=== PATIENT | male | born 1990 | race African-American/Black ===

== ENCOUNTER 2017-09-23 11:53 | Emergency (ER) | payer OTHER ==
[~2017-09-23] VITALS: Ht 172.7 cm; Wt 68.0 kg
[2017-09-23] MEDS ORDERED: LIDOCAINE HCL 2% 20 ML VIAL TP ONE (12:15)
--- NOTE | 2017-09-23 12:17 | NUR ---
pt is in room #2a. dr Way evaluated the pt.
--- NOTE | 2017-09-23 12:33 | NUR ---
PT WAS D/C'd TO HOME. D/C INSTRUCTIONS GIVEN TO THE PT. NO BLEDING. DRESINGIS INTACT.
[2017-09-23 12:34] VITALS: BP 139/77
[2017-09-23 13:11] LABS: *AMPHETAMINE, URINE NEGATIVE (NEGATIVE); *BARBITURATE, URINE NEGATIVE (NEGATIVE); *CANNABINOID, URINE POSITIVE (NEGATIVE); *COCCAINE, URINE NEGATIVE (NEGATIVE); *OPIATE, URINE NEGATIVE (NEGATIVE); *PHENCYCLIDINE SCREEN,URINE NEGATIVE (NEGATIVE)
== END 2017-09-23 12:35 | disposition home or self-care (01) ==
LOC: ER 11:53
DX: S61.213A Laceration without foreign body of left middle finger without damage to nail, initial encounter (principal); W26.0XXA Contact with knife, initial encounter; Y93.89 Activity, other specified; Y92.89 Other specified places as the place of occurrence of the external cause; Y99.8 Other external cause status
CPT/HCPCS: 80307; A4663

== ENCOUNTER 2017-09-26 14:42 | Inpatient (IN) | payer OTHER ==
[~2017-09-26] VITALS: Ht 172.7 cm; Wt 68.0 kg
--- NOTE | 2017-09-26 15:15 | NUR ---
Pt has LT middle finger sutures, but has multiple blisters on mid finger and discoloration, able to move finger, but decreased sensation.
[2017-09-26] MEDS ORDERED: PIPERACILLIN SODIUM/TAZOBACTAM 3.375 G in IV DEXTROSE 5% 50 ML IV ONE (15:39)
[2017-09-26] MEDS ORDERED: VANCOMYCIN IV 1,000 MG in IV DEXTROSE 5% 250 ML IV ONE (15:45)
[2017-09-26] MEDS ORDERED: IV NS 1000 ML 1,000 ML IV ONE (15:45)
[2017-09-26] MEDS ORDERED: KETOROLAC TROMETHAMINE 30 MG INJ IVP ONE (15:56)
[2017-09-26 15:57] LABS: BASOPHILS % (AUTO) 0.4 % (0.0-2.0); EOSINOPHILS % (AUTO) 0.6 % (0.0-7.0); HEMATOCRIT 46.9 % (36.7-47.1); HEMOGLOBIN 15.5 g/dL (12.5-16.3); LYMPHOCYTES # (AUTO) 1.4 K/uL (20.0-40.0); LYMPHOCYTES % (AUTO) 27.3 % (20.5-51.5); MEAN CORPUSCULAR HGB CONC 33 g/dL (32.5-36.3); MEAN CORPUSCULAR VOLUME 93.9 fL (73.0-96.2); MONOCYTES # (AUTO) 0.4 K/uL (2.0-10.0); MONOCYTES % (AUTO) 7.3 % (0.0-11.0); NEUTROPHILS # (AUTO) 3.4 K/uL (1.8-8.9); NEUTROPHILS % (AUTO) 64.4 % (38.5-71.5); PLATELET COUNT (AUTO) 195 K/uL (152-348); RED BLOOD CELL COUNT(AUTO) 4.99 MIL/uL (4.06-5.63); WHITE BLOOD COUNT (AUTO) 5.3 K/uL (3.6-10.2)
[2017-09-26] MEDS ORDERED: NORMAL SALINE FLUSH 10 ML DISP.SYRIN ONE (16:01)
[2017-09-26] MEDS ORDERED: SWABABLE VALVE TRANSFER SET EA MC ONE (16:01)
[2017-09-26] MEDS ORDERED: IV NORMAL SALINE 100 ML ONE (16:02)
[2017-09-26] MEDS ORDERED: IOHEXOL 300MG/ML 100 ML INFUS..BTL ONE (16:02)
[2017-09-26 16:08] LABS: CREATININE 1.3 mg/dL (0.6-1.3); POTASSIUM 3.8 mmol/L (3.5-5.1)
[2017-09-26] MEDS ORDERED: PIPERACILLIN SODIUM/TAZO 3.375 GM VIAL ONE (16:11)
[2017-09-26] MEDS ORDERED: VANCOMYCIN IV 200 ML ONE (16:11)
[2017-09-26 16:14] LABS: BILIRUBIN,TOTAL 0.7 mg/dL (0.2-1.0); TOTAL PROTEIN, SERUM 8.2 g/dL (6.4-8.2)
[2017-09-26] MEDS ORDERED: KETOROLAC TROMETHAMINE 30 MG INJ ONE (16:23)
--- NOTE | 2017-09-26 16:24 | NUR ---
MARCO GARCIA spoke to Dr Barraza. Philip Murray paged Dr Ramos(hand surgeon).
--- NOTE | 2017-09-26 16:30 | NUR ---
Pt signed consent for CT w/ IV contrast.
--- NOTE | 2017-09-26 16:49 | NUR ---
Pt out of Er for CT. DR Ramos spoke to ER .
[2017-09-26] MEDS ORDERED: ACETAMINOPHEN 325 MG TABLET PO PRN (17:30)
[2017-09-26] MEDS ORDERED: Z GUARD REMEDY PASTE 57 GM TUBE TOP PRN (17:30)
[2017-09-26] MEDS ORDERED: MAGNESIUM HYDROXIDE 30 ML LIQUID UDC PO PRN (17:30)
--- NOTE | 2017-09-26 19:07 | NUR ---
CLINICAL PHARMACY NOTE:VANCOMYCIN DOSING request for vancomycin dosing on 27 y/o male 172.7cm tall and weight 68Kg for cellulitis of left 3rd phalanx (finger) Temp 98.5 BUN 10 scr 1.3 WBC 5.3 also on Zosyn, received vancomycin 1gm IVPB in Er Continue vancomycin 1gm ivpb q12h estimated trough 15. Will order trough level prior to 4th dose. Will continue to monitor.
[2017-09-26] MEDS: IV NS 1000 ML 1,000 ML IV SCH (19:53)
[2017-09-26 20:00] VITALS: BP 102/72
--- NOTE | 2017-09-26 20:00 | NUR ---
RECEIVED PATIENT AWAKE IN BED. A/O X4. VERY PLEASANT WHEN APPROACHED. PATIENT DENIES PAIN OR DISCOMFORT IN LEFT HAND. DRESSING NOTED TO MIDDLE FINGER ON LEFT HAND, CLEAN, DRY AND INTACT. ELEVATED ON PILLOWS. VS WNL. NO RESP. DISTRESS NOTED. HEPLOCK INTACT AND PATENT, #20 GAUGE NOTED TO RIGHT FA. CALL LIGHT IN REACH. ALL NEEDS ATTENDED. WILL CONTINUE TO MONITOR AND ASSESS.
--- NOTE | 2017-09-26 21:00 | NUR ---
IVF INFUSING WELL TO RIGHT FA, ORDERED PER MD. DRESSING NOTED TO LEFT HAND, MIDDLE FINGER. DRESSING REMOVED, PICTURE TAKEN AND PLACED IN CHART, NEW STERILE DRESSING APPLIED. NEUROVASCULAR CHECKS WNL, SENSATION PRESENT AND WNL. WILL CONTINUE TO MONITOR AND ASSESS. CALL LIGHT IN REACH. ALL NEEDS ATTENDED.
[2017-09-26] MEDS: PIPERACILLIN/TAZOBACTAM/D5W 50 ML IV SCH (21:16)
[2017-09-27] MEDS: PIPERACILLIN/TAZOBACTAM/D5W 50 ML IV SCH ×4 (03:09→21:29)
[2017-09-27] MEDS: IV NS 1000 ML 1,000 ML IV SCH ×2 (03:22→14:36)
[2017-09-27] MEDS: VANCOMYCIN IV 1 G in PREMIXED 0 EACH IV SCH ×2 (04:09→18:15)
[2017-09-27 04:35] VITALS: BP 101/69
[2017-09-27 06:12] LABS: BASOPHILS % (AUTO) 0.8 % (0.0-2.0); EOSINOPHILS # (AUTO) 0.1 K/uL (0.0-0.7); EOSINOPHILS % (AUTO) 1.4 % (0.0-7.0); HEMATOCRIT 41.3 % (36.7-47.1); HEMOGLOBIN 13.5 g/dL (12.5-16.3); LYMPHOCYTES # (AUTO) 2.1 K/uL (20.0-40.0); LYMPHOCYTES % (AUTO) 43.1 % (20.5-51.5); MEAN CORPUSCULAR HEMOGLOBIN 30.9 uug (23.8-33.4); MEAN CORPUSCULAR HGB CONC 33 g/dL (32.5-36.3); MEAN CORPUSCULAR VOLUME 94.6 fL (73.0-96.2); MONOCYTES # (AUTO) 0.4 K/uL (2.0-10.0); MONOCYTES % (AUTO) 7.2 % (0.0-11.0); NEUTROPHILS # (AUTO) 2.3 K/uL (1.8-8.9); NEUTROPHILS % (AUTO) 47.5 % (38.5-71.5); PLATELET COUNT (AUTO) 169 K/uL (152-348); RED BLOOD CELL COUNT(AUTO) 4.37 MIL/uL (4.06-5.63); WHITE BLOOD COUNT (AUTO) 4.9 K/uL (3.6-10.2)
[2017-09-27 06:24] LABS: CREATININE 1.3 mg/dL (0.6-1.3); MAGNESIUM 1.9 mg/dL (1.8-2.4); PHOSPHOROUS 4.4 mg/dL (2.5-4.9); POTASSIUM 3.9 mmol/L (3.5-5.1)
--- NOTE | 2017-09-27 06:27 | NUR ---
PATIENT ASLEEP IN BED. SLEPT WELL THROUGHOUT THE NIGHT. DRESSING TO LEFT HAND, C/D/I. NO S/S OF PAIN OR DISCOMFORT. CALL LIGHT IN REACH. ALL NEEDS ATTENDED. WILL CONTINUE TO MONITOR AND ASSESS.
--- NOTE | 2017-09-27 08:00 | NUR ---
Pt is in no acute distress. Discussed pain management with patient. Pt agreeable with plan. Pt denies any c/o pain. Pt's left middle finger covered with kerlix. Pt has minimal movement on lef middle finger. Call light is within reach.
[2017-09-27] MEDS ORDERED: SEVOFLURANE 250 ML BOTTLE IH ONE (11:11)
[2017-09-27] MEDS ORDERED: PROPOFOL 200 MG/20 ML BOTTLE IV ONE (11:11)
[2017-09-27] MEDS ORDERED: ONDANSETRON 4 MG/2 ML VIAL IV ONE (11:11)
[2017-09-27] MEDS ORDERED: DEXAMETHASONE SOD PHOSPHATE 4 MG INJ IV ONE (11:11)
[2017-09-27] MEDS ORDERED: LIDOCAINE HCL 1% 20 ML VIAL MC ONE (11:11)
[2017-09-27] MEDS ORDERED: IV NORMAL SALINE 1000 ML BAG IV ONE (11:11)
[2017-09-27 11:31] VITALS: BP 110/74
--- NOTE | 2017-09-27 11:42 | NUR ---
Clinical pharmacy note-Vancomycin dosing per pharmacy Subjective: To continue Vancomycin dosing on this 27 yo male patient for cellulitis. Objective: BUN 9 Scr 1.3 WBC 4.9 Temp 98.3 ht 172.7 cm wt 68 kg Assessment/Plan: Will continue same dose of vanco 1gm IVPB q12hrs for today. Second dose was given today at 0400. Plan to draw trough by 4th dose(not ordered yet). Will monitor daily.
[2017-09-27] MEDS ORDERED: TDAP DIPH,PERTUSS,TET VAC/PF 0.5 ML DISP.SYRIN IM ONE (11:45)
[2017-09-27] MEDS ORDERED: POLYMYXIN B SULFATE 500,000 UNITS, BACITRACIN 50,000 UNITS, NORMAL SALINE 20 ML MC ONE ×3 (14:15)
[2017-09-27] MEDS: DOXYCYCLINE HYCLATE IV 100 MG in IV DEXTROSE 5% 100 ML IV SCH (14:31)
[2017-09-27 15:00] VITALS: BP 105/69
--- NOTE | 2017-09-27 15:15 | NUR ---
Pt is in no acute distress. UA sent to lab prior to surgery. Pt picked up by surgery team. Dr Hensley surgeon spoke with patient and explained risk and benefits of surgery. Pt signed consent. Call light is within reach.
[2017-09-27] MEDS ORDERED: LIDOCAINE 1%-EPI 1:100,000 20 ML VIAL ONE (16:23)
[2017-09-27 17:07] LABS: *BILIRUBIN,URIN NEGATIVE (NEGATIVE); *BLOOD, URINE NEGATIVE (NEGATIVE); *CLARITY,URINE CLEAR (CLEAR); *COLOR,URINE YELLOW (YELLOW); *KETONES,URINE NEGATIVE (NEGATIVE); *PROTEIN,URINE NEGATIVE (NEGATIVE); LEUKOCYTE ESTERASE ,URINE NEGATIVE (NEGATIVE); NITRITE, URINE NEGATIVE (NEGATIVE); PH,URINE 7.5 (5.0-8.0); UGLUCOSE NEGATIVE (NEGATIVE)
[2017-09-27 17:38] LABS: MUCUS,URINE FEW /LPF (0-FEW); WBC,URINE NONE SEEN /HPF (0-3)
[2017-09-27 18:18] VITALS: BP 131/72
--- NOTE | 2017-09-27 19:15 | NUR ---
RECEIVED PT AWAKE, ALERT, ORIENTEDX4. PT SHOWS NO SIGNS OF DISTRESS. PT IV INTACT AND PATENT. CALL LIGHT WITHIN REACH, BED ALARM ON AND IN LOW POSITION, SIDE RAILS UPX2. WILL CONTINUE TO MONITOR.
[2017-09-27 20:20] VITALS: BP 124/75
[2017-09-27] MEDS: LACTOBACILLUS RHAMNOSUS GG 1 EACH CAPSULE PO SCH (20:48)
[2017-09-27] MEDS: MORPHINE SULFATE 2 MG/1 ML DISP.SYRIN IV PRN (22:05)
[2017-09-28] MEDS: DOXYCYCLINE HYCLATE IV 100 MG in IV DEXTROSE 5% 100 ML IV SCH ×2 (01:12→13:47)
[2017-09-28] MEDS: HYDROCODONE/APAP 5-325MG TABLET PO PRN (02:50)
[2017-09-28] MEDS: PIPERACILLIN/TAZOBACTAM/D5W 50 ML IV SCH ×4 (03:02→22:33)
[2017-09-28] MEDS: VANCOMYCIN IV 1 G in PREMIXED 0 EACH IV SCH ×2 (04:12→16:25)
[2017-09-28] MEDS: MORPHINE SULFATE 2 MG/1 ML DISP.SYRIN IV PRN ×2 (04:48→11:33)
[2017-09-28 05:00] VITALS: BP 99/39
--- NOTE | 2017-09-28 06:27 | NUR ---
PT SLEPT INTERMITTENTLY.PT SHOWS NO SIGNS OF DISTRESS. PRESCRIBED MEDICATION GIVEN AND PT TOLERATED IT WELL. SAFETY AND COMFORT PROVIDED.PAIN MANAGEMENT DONE. PT GIVEN NORCO AT 0250h AND MORPHINE 2206H AND 0448H. PT STABLE. ALL NEEDS ARE MET.WILL ENDORSE TO DAYSHIFT NURSE.
--- NOTE | 2017-09-28 07:10 | NUR ---
Received patient sleeping in bed, in no acute distress. IV fluids NS running at 100ml/hr. IV site on RFA intact. Dressing on left hand in place, scant amount of strike through bleeding noted. No SOB noted at this time. Will continue to monitor.
[2017-09-28 07:17] LABS: BASOPHILS % (AUTO) 0.1 % (0.0-2.0); LYMPHOCYTES # (AUTO) 0.9 K/uL (20.0-40.0); LYMPHOCYTES % (AUTO) 10.2 % (20.5-51.5); MEAN CORPUSCULAR HEMOGLOBIN 31.1 uug (23.8-33.4); MEAN CORPUSCULAR HGB CONC 33 g/dL (32.5-36.3); MEAN CORPUSCULAR VOLUME 93.1 fL (73.0-96.2); MONOCYTES # (AUTO) 0.5 K/uL (2.0-10.0); MONOCYTES % (AUTO) 5.6 % (0.0-11.0); NEUTROPHILS # (AUTO) 7.6 K/uL (1.8-8.9); NEUTROPHILS % (AUTO) 84.1 % (38.5-71.5); PLATELET COUNT (AUTO) 173 K/uL (152-348); RED BLOOD CELL COUNT(AUTO) 4.51 MIL/uL (4.06-5.63)
[2017-09-28 07:33] LABS: CREATININE 1.2 mg/dL (0.6-1.3); MAGNESIUM 1.8 mg/dL (1.8-2.4); PHOSPHOROUS 4.7 mg/dL (2.5-4.9); POTASSIUM 4.1 mmol/L (3.5-5.1)
[2017-09-28] MEDS: IV NS 1000 ML 1,000 ML IV PRN ×2 (08:31→22:39)
[2017-09-28] MEDS: LACTOBACILLUS RHAMNOSUS GG 1 EACH CAPSULE PO SCH ×2 (08:39→20:21)
[2017-09-28 11:05] VITALS: BP 102/54
--- NOTE | 2017-09-28 11:36 | NUR ---
Dr. Berry was in the unit to see patient, dressing was changed on left third phalanx, patient able to tolerate the procedure well. Medicated for pain and was effective. No s/s of bleeding noted. Will continue to monitor
--- NOTE | 2017-09-28 15:37 | NUR ---
Clinical pharmacy note-Vancomycin dosing per pharmacy Subjective: To continue Vancomycin dosing on this 27 yo male patient for cellulitis. Objective: BUN 8 Scr 1.2 WBC 9.0 Temp 98.4 ht 172.7 cm wt 68 kg Assessment/Plan: Will continue same dose of vanco 1gm IVPB q12hrs for today. Plan to draw trough by 4th dose(ordered today at 1530). Will follow the level for further dosing. Addendum: 09/28/17 at 1639 by MARILEE JACKSON VANCOMYCIN TROUGH 11.2. WILL CHANGE DOSE TO 1 GRAM IV EVERY 9HRS (SECOND DOSE TOMORROW AT 0100) EXPECTED TROUGH WILL BE AROUND 16.9 FOR SEVERE CELLULITIS(ID ADDED DOXYCYCLINE ALSO).
[2017-09-28 15:41] VITALS: BP 98/51
--- NOTE | 2017-09-28 18:21 | NUR ---
End of shift note: patient is alert and oriented x4, in no acute distress. Denies any chest pain or SOB at this time. Dressing on left hand intact. no s/s of bleeding noted. Continues on IV atb as ordered, no A/R noted. All needs attended and met. Will continue to monitor.
--- NOTE | 2017-09-28 19:15 | NUR ---
RECEIVED PT AWAKE, ALERT, ORIENTEDX4.IV INTACT AND PATENT. PT SHOWS NO ACUTE DISTRESS. CALL LIGHT WITHIN REACH, BED ALARM ON AND IN LOW POSITION, SIDE RAILS UPX2. WILL CONTINUE TO MONITOR.
[2017-09-28 20:00] VITALS: BP 104/64
[2017-09-28] MEDS ORDERED: LACTOBACILLUS RHAMNOSUS GG 1 EACH CAPSULE PO SCH (21:00)
[2017-09-29] MEDS: VANCOMYCIN IV 1 G in PREMIXED 0 EACH IV SCH ×3 (00:09→19:39)
[2017-09-29] MEDS: DOXYCYCLINE HYCLATE IV 100 MG in IV DEXTROSE 5% 100 ML IV SCH ×2 (01:22→13:44)
[2017-09-29] MEDS: PIPERACILLIN/TAZOBACTAM/D5W 50 ML IV SCH ×4 (03:41→21:51)
[2017-09-29 04:24] VITALS: BP 105/63
--- NOTE | 2017-09-29 06:28 | NUR ---
PT SLEPT THROUGHOUT THE SHIFT. PT SHOWS NO SIGNS OF DISTRESS. PRESCRIBED MEDICATION GIVEN AND PT TOLERATED IT WELL. SAFETY AND COMFORT PROVIDED. ALL NEEDS ARE MET. WILL ENDORSE ACCORDINGLY.
[2017-09-29 06:57] LABS: BASOPHILS % (AUTO) 0.7 % (0.0-2.0); EOSINOPHILS # (AUTO) 0.1 K/uL (0.0-0.7); HEMATOCRIT 38.7 % (36.7-47.1); HEMOGLOBIN 13.1 g/dL (12.5-16.3); LYMPHOCYTES # (AUTO) 2.1 K/uL (20.0-40.0); LYMPHOCYTES % (AUTO) 31.4 % (20.5-51.5); MEAN CORPUSCULAR HEMOGLOBIN 31.6 uug (23.8-33.4); MEAN CORPUSCULAR HGB CONC 34 g/dL (32.5-36.3); MEAN CORPUSCULAR VOLUME 93.6 fL (73.0-96.2); MONOCYTES # (AUTO) 0.5 K/uL (2.0-10.0); MONOCYTES % (AUTO) 7.1 % (0.0-11.0); NEUTROPHILS % (AUTO) 59.8 % (38.5-71.5); PLATELET COUNT (AUTO) 166 K/uL (152-348); RED BLOOD CELL COUNT(AUTO) 4.13 MIL/uL (4.06-5.63); WHITE BLOOD COUNT (AUTO) 6.6 K/uL (3.6-10.2)
[2017-09-29 07:01] LABS: CREATININE 1.2 mg/dL (0.6-1.3); POTASSIUM 3.6 mmol/L (3.5-5.1)
--- NOTE | 2017-09-29 07:20 | NUR ---
Received patient in bed, sleeping, in no acute distress. IV site on RFA intact, IV fluids running continuously. Will continue to monitor
[2017-09-29] MEDS: LACTOBACILLUS RHAMNOSUS GG 1 EACH CAPSULE PO SCH ×2 (09:00→20:27)
--- NOTE | 2017-09-29 10:00 | NUR ---
Clinical pharmacy note-Vancomycin dosing per pharmacy Subjective: To continue Vancomycin dosing on this 27 yo male patient for cellulitis. Objective: BUN 11 Scr 1.2 WBC 6.6 Temp 98 Vanco trough level: pending ht 172.7 cm wt 68 kg Assessment/Plan: Will continue same dose of vanco 1gm IVPB q12hrs for today. Plan to draw trough by 4th dose(ordered today at 1830). Will follow the level for further dosing. Addendum: 09/29/17 at 1857 by SADAF JACKSON CORRECTION VANCOMYCIN DOSE IS 1GM IVPB Q9H . TROUGH 15.9 CONTINUE VANCOMYCIN 1GM IVPB Q9H
--- NOTE | 2017-09-29 10:00 | NUR ---
JACKIE Sims was in the unit to see patient, dressing changed, patient able to tolerate the procedure well.
[2017-09-29 11:25] VITALS: BP 109/62
[2017-09-29 15:17] VITALS: BP 110/70
--- NOTE | 2017-09-29 17:56 | NUR ---
End of shift note: Patient is alert and oriented x4, in no acute distress. Dressing on the left hand/third finger intact, no s/s of bleeding noted. Patient instructed to keep the left hand elevated, able to verbalized understanding. Continues on IV atb, no A/R noted. IV site was changed to the left hand, intact, no s/s of infiltration noted. All needs attended and met. Call light within reach. Will endorse accordingly
[2017-09-29] MEDS: IV NS 1000 ML 1,000 ML IV PRN (18:58)
[2017-09-29 20:00] VITALS: BP 109/64
--- NOTE | 2017-09-29 20:00 | NUR ---
RECEIVED PATIENT AWAKE IN BED, WATCHING TV. A/O X4. DRESSING NOTED TO LEFT HAND/MIDDLE FINGER, CLEAN, DRY AND INTACT. IVF INFUSING WELL TO RIGHT HAND #20 GAUGE. DENIES PAIN OR DISCOMFORT. NO RESP. DISTRESS NOTED. VS WNL. BED ALARM ON. CALL LIGHT IN REACH. ALL NEEDS ATTENDED. WILL CONTINUE TO MONITOR AND ASSESS.
[2017-09-29] MEDS ORDERED: BISACODYL 10 MG SUPP.RECT RC PRN (22:45)
[2017-09-29] MEDS: DOCUSATE SODIUM 100 MG CAPSULE PO SCH (23:14)
[2017-09-30] MEDS: DOXYCYCLINE HYCLATE IV 100 MG in IV DEXTROSE 5% 100 ML IV SCH ×2 (00:59→14:11)
[2017-09-30 04:38] VITALS: BP 113/67
[2017-09-30] MEDS: PIPERACILLIN/TAZOBACTAM/D5W 50 ML IV SCH ×2 (05:01→09:01)
[2017-09-30] MEDS: VANCOMYCIN IV 1 G in PREMIXED 0 EACH IV SCH ×3 (06:07→21:08)
--- NOTE | 2017-09-30 06:07 | NUR ---
PATIENT AWAKE IN BED, LISTENING TO MUSIC. NEW IV STARTED TO LEFT FA #20 GAUGE. VSS. DENIES PAIN. SLEPT AT INTERVALS. CALL LIGHT IN REACH. ALL NEEDS ATTENDED. WILL CONTINUE TO MONITOR.
[2017-09-30 06:13] LABS: BASOPHILS # (AUTO) 0.1 K/uL (0.0-8.0); BASOPHILS % (AUTO) 0.9 % (0.0-2.0); EOSINOPHILS # (AUTO) 0.2 K/uL (0.0-0.7); EOSINOPHILS % (AUTO) 2.6 % (0.0-7.0); HEMOGLOBIN 14.2 g/dL (12.5-16.3); LYMPHOCYTES # (AUTO) 1.8 K/uL (20.0-40.0); LYMPHOCYTES % (AUTO) 26.1 % (20.5-51.5); MEAN CORPUSCULAR HEMOGLOBIN 30.9 uug (23.8-33.4); MEAN CORPUSCULAR HGB CONC 33 g/dL (32.5-36.3); MEAN CORPUSCULAR VOLUME 93.3 fL (73.0-96.2); MONOCYTES # (AUTO) 0.8 K/uL (2.0-10.0); MONOCYTES % (AUTO) 11.4 % (0.0-11.0); NEUTROPHILS # (AUTO) 4.2 K/uL (1.8-8.9); PLATELET COUNT (AUTO) 173 K/uL (152-348); RED BLOOD CELL COUNT(AUTO) 4.61 MIL/uL (4.06-5.63)
[2017-09-30 06:25] LABS: CREATININE 1.3 mg/dL (0.6-1.3); POTASSIUM 3.6 mmol/L (3.5-5.1)
--- NOTE | 2017-09-30 07:34 | NUR ---
patient resting comfortably in bed at this time. a/ox4, able to ambulate to restroom w/ self. abx will be administered as ordered and wound care to left finger will be provided. no s/s of distress, stable condition at this time. will monitor throughout shift.
[2017-09-30] MEDS: LACTOBACILLUS RHAMNOSUS GG 1 EACH CAPSULE PO SCH ×2 (08:37→20:27)
--- NOTE | 2017-09-30 11:30 | NUR ---
DECREASED BP 91/52, HEART RATE 61: NOTIFIED. ORDERED TO CONTINUE MONITORING.
[2017-09-30 11:34] VITALS: BP 91/52
[2017-09-30] MEDS: SODIUM HYPOCHLORITE 0.125% 473 ML BOTTLE TP SCH (12:02)
--- NOTE | 2017-09-30 12:47 | NUR ---
Clinical pharmacy note-Vancomycin dosing per pharmacy Subjective: To continue Vancomycin dosing on this 27 yo male patient for cellulitis. Objective: BUN 10 Scr 1.3 WBC 7.0 Temp 98.3 Vanco trough level: 15.9 ON 09/29 ht 172.7 cm wt 68 kg Assessment/Plan: Will continue same dose of vanco 1gm IVPB q12hrs for today. Will monitor renal function closely & repeat trough if srcr continues to increase. Will follow.
[2017-09-30 15:48] VITALS: BP 100/66
[2017-09-30] MEDS: IV NS 1000 ML 1,000 ML IV PRN (16:31)
--- NOTE | 2017-09-30 17:25 | NUR ---
blood pressure improved into systolic 100s. BP remains in the same limits, which is baseline for patient. stable and no s/s of distress throughout shift. no complaints of pain verbalized by patient. ABX administered per MD orders. Wound care provided by JACKIE Llanos on left middle finger wound. Afebrile throughout shift. Awaiting blood cultures and wound cares. call light within reach. safety measures implemented.
[2017-09-30 19:00] VITALS: BP 117/59
--- NOTE | 2017-09-30 20:10 | NUR ---
RECEIVED PATIENT AWAKE IN BED, WATCHING TV. A/O X4. DRESSING NOTED TO LEFT HAND/MIDDLE FINGER. IVF INFUSING WELL TO LEFT FA#20 GAUGE. DENIES PAIN OR DISCOMFORT. NO RESP. DISTRESS NOTED. VS WNL. BED ALARM ON. CALL LIGHT IN REACH. ALL NEEDS ATTENDED. WILL CONTINUE TO MONITOR AND ASSESS.
[2017-09-30] MEDS: DOCUSATE SODIUM 100 MG CAPSULE PO SCH (20:27)
[2017-09-30] MEDS: ONDANSETRON 4 MG/2 ML VIAL IV PRN (22:52)
[2017-10-01 04:00] VITALS: BP 102/48
[2017-10-01] MEDS: IV NS 1000 ML 1,000 ML IV PRN ×2 (04:27→20:45)
[2017-10-01 05:58] LABS: BASOPHILS # (AUTO) 0.1 K/uL (0.0-8.0); BASOPHILS % (AUTO) 0.7 % (0.0-2.0); EOSINOPHILS # (AUTO) 0.1 K/uL (0.0-0.7); EOSINOPHILS % (AUTO) 1.9 % (0.0-7.0); HEMATOCRIT 41.6 % (36.7-47.1); LYMPHOCYTES # (AUTO) 1.2 K/uL (20.0-40.0); MEAN CORPUSCULAR HEMOGLOBIN 31.3 uug (23.8-33.4); MEAN CORPUSCULAR HGB CONC 34 g/dL (32.5-36.3); MEAN CORPUSCULAR VOLUME 92.6 fL (73.0-96.2); NEUTROPHILS # (AUTO) 4.8 K/uL (1.8-8.9); NEUTROPHILS % (AUTO) 66.4 % (38.5-71.5); PLATELET COUNT (AUTO) 177 K/uL (152-348); RED BLOOD CELL COUNT(AUTO) 4.49 MIL/uL (4.06-5.63); WHITE BLOOD COUNT (AUTO) 7.3 K/uL (3.6-10.2)
[2017-10-01 06:01] LABS: CREATININE 1.7 mg/dL (0.6-1.3); POTASSIUM 4.3 mmol/L (3.5-5.1)
[2017-10-01] MEDS: VANCOMYCIN IV 1 G in PREMIXED 0 EACH IV SCH (06:08)
--- NOTE | 2017-10-01 07:35 | NUR ---
RECEIVED PATIENT IN BED AWAKE ALERT AND ORIENTED DENIES PAIN OR DISCOMFORTS AT THIS TIME REMAIN ON ROOM AIR WITH NO SHORTNESS OF BREATH AT THIS TIME LEFT MIDDLE FINGER WITH DRESSING INTACT WITH NO DRAINAGE AT THIS TIME ELEVATED FOR COMFORT MADE COMFORTABLE AND WILL CONTINUE TO OBSERVE.
[2017-10-01] MEDS: LACTOBACILLUS RHAMNOSUS GG 1 EACH CAPSULE PO SCH ×2 (08:59→20:19)
[2017-10-01] MEDS: SODIUM HYPOCHLORITE 0.125% 473 ML BOTTLE TP SCH (08:59)
[2017-10-01] MEDS ORDERED: IV NS 1000 ML 1,000 ML IV ONE (09:30)
--- NOTE | 2017-10-01 10:58 | NUR ---
URINE SPECIMEN OBTAINED FROM THE PATIENT AND SENT TO THE LAB ORDERED.
[2017-10-01 11:36] LABS: *BILIRUBIN,URIN NEGATIVE (NEGATIVE); *BLOOD, URINE NEGATIVE (NEGATIVE); *CLARITY,URINE CLEAR (CLEAR); *COLOR,URINE YELLOW (YELLOW); *KETONES,URINE NEGATIVE (NEGATIVE); *PROTEIN,URINE NEGATIVE (NEGATIVE); *UROBILINOGEN,URINE 0.2 E.U./dl (NORMAL); LEUKOCYTE ESTERASE ,URINE NEGATIVE (NEGATIVE); NITRITE, URINE NEGATIVE (NEGATIVE); UGLUCOSE NEGATIVE (NEGATIVE)
[2017-10-01 11:42] LABS: BACTERIA,URINE FEW /HPF (NONE SEEN); SQUAMOUS EPITHELIAL CELL,UR FEW /HPF (NONE SEEN); WBC,URINE 0-3 /HPF (0-3)
[2017-10-01 11:43] LABS: RBC,URINE NONE SEEN /HPF (0-3)
[2017-10-01 12:09] VITALS: BP 112/77
--- NOTE | 2017-10-01 13:51 | NUR ---
Clinical pharmacy note-Vancomycin dosing per pharmacy Subjective: To continue Vancomycin dosing on this 27 yo male patient for cellulitis. Objective: BUN 17 Scr 1.7 (increased from 1.3) WBC 7.3 Temp 98.5 Vanco trough level: 15.9 ON 09/29 ht 172.7 cm wt 68 kg Repeat trough: today at 1530 Assessment/Plan: Due to reduced renal function, d/c'd scheduled regimen and ordered trough for 1530 to recheck level and ensure there has been no accumulation. Will check level and adjust regimen or dose per level as needed. Will follow
[2017-10-01 16:18] VITALS: BP 119/78
[2017-10-01] MEDS ORDERED: CEFAZOLIN 1 G in PREMIXED 1 EACH IV SCH (17:00)
--- NOTE | 2017-10-01 18:00 | NUR ---
STARTED ON ANCEF ORDERED TOLERATED WITH NO ADVERSE OR ALLERGIC REACTIONS AT THIS TIME PATIENT IS ABLE TO WIGGLE HIS LEFT MID FINGER TREATMENT REMAINS INTACT AT THIS TIME WILL CONTINUE TO OBSERVE.
[2017-10-01 20:15] VITALS: BP 120/52
[2017-10-01] MEDS: DOCUSATE SODIUM 100 MG CAPSULE PO SCH (20:19)
[2017-10-02 04:00] VITALS: BP 112/70
[2017-10-02] MEDS: IV NS 1000 ML 1,000 ML IV PRN ×2 (06:21→17:57)
[2017-10-02 06:30] LABS: BASOPHILS % (AUTO) 0.6 % (0.0-2.0); EOSINOPHILS # (AUTO) 0.2 K/uL (0.0-0.7); EOSINOPHILS % (AUTO) 3.4 % (0.0-7.0); HEMOGLOBIN 13.6 g/dL (12.5-16.3); LYMPHOCYTES # (AUTO) 1.3 K/uL (20.0-40.0); LYMPHOCYTES % (AUTO) 20.9 % (20.5-51.5); MEAN CORPUSCULAR HEMOGLOBIN 31.4 uug (23.8-33.4); MEAN CORPUSCULAR HGB CONC 33 g/dL (32.5-36.3); MEAN CORPUSCULAR VOLUME 94.7 fL (73.0-96.2); MONOCYTES # (AUTO) 0.7 K/uL (2.0-10.0); MONOCYTES % (AUTO) 12.1 % (0.0-11.0); NEUTROPHILS # (AUTO) 3.9 K/uL (1.8-8.9); PLATELET COUNT (AUTO) 165 K/uL (152-348); RED BLOOD CELL COUNT(AUTO) 4.32 MIL/uL (4.06-5.63); WHITE BLOOD COUNT (AUTO) 6.2 K/uL (3.6-10.2)
[2017-10-02 06:44] LABS: CREATININE 1.8 mg/dL (0.6-1.3); PHOSPHOROUS 3.8 mg/dL (2.5-4.9); POTASSIUM 4.3 mmol/L (3.5-5.1)
--- NOTE | 2017-10-02 07:15 | NUR ---
Fairly rested, no acute resp distress, vital signs stable. IVF maintained.
--- NOTE | 2017-10-02 07:20 | NUR ---
RECEIVED IN BED AWAKE ALERT AND ORIENTED REMAIN ON IVF ORDERED WITH NO S/S OF INFILTERATION ON SITE ON ROOM AIR WITH NO S/S OF INFILTERATION ON SITE.REMAIN ON ATB WITH NO ADVERSE OR ALLERGIC REACTIONS AT THIS TIME LEFT MIDDLE FINGER WITH DRESSING INTACT WITH SWELLING ENCOURAGED TO ELEVATE ON THE PILLOW MUCH POSSIBLE TO DECREASE SWELLING AND EXPRESSED UNDERSTANDING STATED THAT HE IS COMFORTABLE AT THIS TIME WILL CONTINUE TO OBSERVE PATIENT.
[2017-10-02] MEDS: LACTOBACILLUS RHAMNOSUS GG 1 EACH CAPSULE PO SCH ×2 (08:49→20:52)
[2017-10-02] MEDS: LINEZOLID IV 600 MG in PREMIXED 1 EACH IV SCH ×2 (08:54→20:52)
[2017-10-02] MEDS: SODIUM HYPOCHLORITE 0.125% 473 ML BOTTLE TP SCH (08:56)
--- NOTE | 2017-10-02 09:44 | NUR ---
PATIENT SEEN AND EXAMINED BY JULIA MEJIA WITH NEW ORDERS AND NOTED.
--- NOTE | 2017-10-02 11:36 | NUR ---
PATIENT SEEN AND EXAMINED BY DR ESTEVES WITH NEW ORDERS AND NOTED
[2017-10-02 11:37] VITALS: BP 112/63
--- NOTE | 2017-10-02 13:30 | NUR ---
PATIENT SEEN AND EXAMINED BY VANI MCCOY PLASTIC SURGERY PACKERHEAD MACHINE OPERATOR SHE CHANGED THE DRESSING ON HIS LEFT MID FINGER AND PHOTO TAKEN AND DOCUMENTED AT THIS TIME.
[2017-10-02 16:00] VITALS: BP 118/74
--- NOTE | 2017-10-02 16:34 | NUR ---
ULTRASOUND OF THE KIDNEYS COMPLETED ORDERED AWAITNG FOR RESULTS.
--- NOTE | 2017-10-02 18:19 | NUR ---
RESTING WITH FAMILY AT HIS BEDSIDE DENIES DISCOMFORTS RIGHT ARM/HAND ELEVATED ON THE PILLOW WILL CONTINUE TO OBSERVE.
[2017-10-02 20:00] VITALS: BP 116/62
[2017-10-02] MEDS: DOCUSATE SODIUM 100 MG CAPSULE PO SCH (20:53)
[2017-10-02 21:07] LABS: *BILIRUBIN,URIN NEGATIVE (NEGATIVE); *BLOOD, URINE 2+ (NEGATIVE); *CLARITY,URINE CLEAR (CLEAR); *COLOR,URINE YELLOW (YELLOW); *KETONES,URINE NEGATIVE (NEGATIVE); *PROTEIN,URINE NEGATIVE (NEGATIVE); *UROBILINOGEN,URINE 0.2 E.U./dl (NORMAL); LEUKOCYTE ESTERASE ,URINE NEGATIVE (NEGATIVE); NITRITE, URINE NEGATIVE (NEGATIVE); UGLUCOSE NEGATIVE (NEGATIVE)
[2017-10-02 21:32] LABS: BACTERIA,URINE NONE SEEN /HPF (NONE SEEN); SQUAMOUS EPITHELIAL CELL,UR FEW /HPF (NONE SEEN); WBC,URINE 0-3 /HPF (0-3)
--- NOTE | 2017-10-02 22:00 | NUR ---
No pain complaint, routine night meds given. Afebrile vital signs stable.
[2017-10-02 23:46] LABS: *CREATININE,URINE 44.9 mg/dL (30-125); *URINE TOTAL PROTEIN RANDOM < 6.0 mg/dL (<150/24HR)
[2017-10-03] MEDS: IV NS 1000 ML 1,000 ML IV PRN ×2 (03:44→15:43)
[2017-10-03 04:00] VITALS: BP 125/71
--- NOTE | 2017-10-03 06:15 | NUR ---
No acute distress, assisted w/ all needs. Vital signs WNL.
[2017-10-03 06:33] LABS: BASOPHILS # (AUTO) 0.1 K/uL (0.0-8.0); BASOPHILS % (AUTO) 0.9 % (0.0-2.0); EOSINOPHILS # (AUTO) 0.2 K/uL (0.0-0.7); EOSINOPHILS % (AUTO) 2.9 % (0.0-7.0); HEMOGLOBIN 13.4 g/dL (12.5-16.3); LYMPHOCYTES # (AUTO) 1.4 K/uL (20.0-40.0); LYMPHOCYTES % (AUTO) 23.7 % (20.5-51.5); MEAN CORPUSCULAR HEMOGLOBIN 31.7 uug (23.8-33.4); MEAN CORPUSCULAR HGB CONC 33 g/dL (32.5-36.3); MONOCYTES # (AUTO) 0.6 K/uL (2.0-10.0); MONOCYTES % (AUTO) 9.9 % (0.0-11.0); NEUTROPHILS # (AUTO) 3.7 K/uL (1.8-8.9); NEUTROPHILS % (AUTO) 62.6 % (38.5-71.5); PLATELET COUNT (AUTO) 173 K/uL (152-348); RED BLOOD CELL COUNT(AUTO) 4.21 MIL/uL (4.06-5.63)
[2017-10-03 06:48] LABS: BILIRUBIN,TOTAL 0.5 mg/dL (0.2-1.0); CREATININE 1.6 mg/dL (0.6-1.3); PHOSPHOROUS 3.9 mg/dL (2.5-4.9); POTASSIUM 3.9 mmol/L (3.5-5.1); TOTAL PROTEIN, SERUM 6.9 g/dL (6.4-8.2)
--- NOTE | 2017-10-03 07:30 | NUR ---
ASLEEP AROUSES EASILY SEEMS COMFORTABLE REMAIN ON IVF AND IV ANTIBIOTICS ORDERED WITH NO ADVERSE OR ALLERGIC REACTIONS AT THIS TIME.LEFT ARM ELEVATED WITH DRESSINGS INTACT TO HIS LEFT MIDDLE FINGER RESTING WITH NO DISTRESS AT THIS TIME.
[2017-10-03] MEDS: LACTOBACILLUS RHAMNOSUS GG 1 EACH CAPSULE PO SCH ×2 (08:53→20:06)
[2017-10-03] MEDS: LINEZOLID IV 600 MG in PREMIXED 1 EACH IV SCH ×2 (08:54→20:14)
[2017-10-03] MEDS: SODIUM HYPOCHLORITE 0.125% 473 ML BOTTLE TP SCH (08:56)
--- NOTE | 2017-10-03 11:00 | NUR ---
JULIA HAD ORDERED PICC LINE AND THE [employer] AT [employer] WAS MADE AWARE AND SHE CALLED THE PICC LINE NURSE BUT DR HAMM IS HERE AND STATED THAT THE PATIENT MAY BE DISCHARGED HOME ON LINEZOID BUT STATED WILL INFORM THE INDIRECT FIRE INFANTRYMAN JULIA SOON HE IS SURE.
[2017-10-03 11:30] VITALS: BP 110/78
--- NOTE | 2017-10-03 13:45 | NUR ---
PER THE CHARGE NURSE PATIENT WILL BE DISCHARGED HOME ON ORAL ANTIBIOTICS SO THERE WILL BE NO NEED FOR PICC LINE PLACEMENT.AWAITING FOR FINAL ORDERS.
[2017-10-03 15:25] VITALS: BP 123/77
[2017-10-03] MEDS: HYDROCODONE/APAP 5-325MG TABLET PO PRN (17:44)
--- NOTE | 2017-10-03 18:06 | NUR ---
NO DISCHARGE ORDERS AT THIS TIME THE [employer] ARCHITECT SENT TO THE POISER THE NOTES FROM YESTERDAY FROM DR GREGG POISER
--- NOTE | 2017-10-03 18:47 | NUR ---
PATIENT WILL BE DISCHARGED TONITE AFTER THE 2100 DOSE TONITE PER THE FLOWER MACHINE OPERATOR HIS ZYVOX WAS CALLED TO [facility] IN [place] AND PATIENT IS AWARE TO RADIO DISC JOCKEY TONITE.PATIENT STATED WILL CALL HIS MOM TO PICK HIM UP TONITE AFTER HIS ZYVOX IV ATB INFUSED.PATIENT IS AWARE AND EXPRESSED UNDERSTANDING.
[2017-10-03] MEDS: ONDANSETRON 4 MG/2 ML VIAL IV PRN (20:04)
[2017-10-03] MEDS: DOCUSATE SODIUM 100 MG CAPSULE PO SCH (20:07)
[2017-10-03 20:42] VITALS: BP 130/80
[2017-10-03 21:14] VITALS: BP 118/77
--- NOTE | 2017-10-03 21:55 | NUR ---
Discharge instructions given to patient. I went over the wound care orders, home health nurse, and the antibiotics patient will take at home, which has been called to [facility] for pickup. Patient verbalized understanding. Patient understood to follow up with outpatient wound care. IV disconnected. Vital signs stable. Denies pain/distress. Ambulatory and able to tolerate regular food. At this time patient is just waiting for his mother to pick him up from the hospital.
--- NOTE | 2017-10-03 22:00 | NUR ---
Mother here to bulk picker patient. Belongings list complete. Patient has all discharge instructions with him.
== END 2017-10-03 22:14 | disposition home health service (06) | DRG 579 ==
LOC: ER 14:43 → MED 18:26
PROVIDERS: ADMIT Internal Medicine; ATTEND Internal Medicine
DX: L03.012 Cellulitis of left finger (principal); N17.0 Acute kidney failure with tubular necrosis; S61.313A Laceration without foreign body of left middle finger with damage to nail, initial encounter; M65.142 Other infective (teno)synovitis, left hand; W26.0XXA Contact with knife, initial encounter; Y93.G1 Activity, food preparation and clean up; Y92.233 Cafeteria of hospital as the place of occurrence of the external cause; Y99.0 Civilian activity done for income or pay; Z89.022 Acquired absence of left finger(s); E86.0 Dehydration; T36.8X5A Adverse effect of other systemic antibiotics, initial encounter; Y92.532 Urgent care center as the place of occurrence of the external cause
CPT/HCPCS: 36415; 76770; 83735; 84100; 84156; 84300; 85025; 87040; 87070; 87075; 87077; 90715; A4217; A4649; A4663; J0690; J1100; J1885; J2020; J2270; J2405; J2543; J3370; J3490; J7030; J7060; Q9967

== ENCOUNTER 2017-10-04 10:47 | Emergency (ER) | payer OTHER ==
[~2017-10-04] VITALS: Ht 167.6 cm; Wt 68.0 kg
[2017-10-04] MEDS ORDERED: NEOMY/BACITRA/POLYMYXIN B OINT UD PACKET TP ONE (11:02)
--- NOTE | 2017-10-04 11:06 | NUR ---
APPLIED A NEW NON ADHESIVE DRESSING TO LT MIDDLE FINGER PER MD ORDER.
--- NOTE | 2017-10-04 11:13 | NUR ---
MSE COMPLETED, ACI GIVEN. PT AMBULATED W/O DIFF/TOOK ALL BELONGINGS.
[2017-10-04 11:14] VITALS: BP 132/66
== END 2017-10-04 11:15 | disposition home or self-care (01) ==
LOC: ER 10:47
DX: Z48.01 Encounter for change or removal of surgical wound dressing (principal)
CPT/HCPCS: A4663